=== PATIENT | female | born 1975 | race Caucasian/White ===

== ENCOUNTER 2020-01-26 09:48 | Emergency (ER) | payer BC ==
[~2020-01-26] VITALS: Ht 162.6 cm; Wt 72.1 kg
[2020-01-26] MEDS ORDERED: LORCET 5-325 M1 EACH PO (09:57)
[2020-01-26] MEDS ORDERED: CIPROFLOXIN HC2.5 M1 OPHTHALMIC (10:15)
[2020-01-26 10:17] VITALS: BP 124/73
== END 2020-01-26 10:17 | disposition home or self-care (01) ==
LOC: M.ERS 09:48
DX: H18.822 Corneal disorder due to contact lens, left eye (principal)